=== PATIENT | female | born 1950 | race Caucasian/White ===

== ENCOUNTER → 2017-11-22 11:12 | Outpatient (CLI) | payer MEDICARE, OTHER, SELFPAY ==
[2017-11-22 12:38] LABS: Alanine Aminotransferase 33 IU/L (9-52); Albumin 4.6 g/dL (3.5-5.0); Albumin Globulin Ratio 1.5 (1.0-2.8); Alkaline Phosphatase 69 U/L (38-126); Aspartate Aminotransferase 34 IU/L (14-36); Bilirubin Total 0.8 mg/dL (0.2-1.3); Blood Urea Nitrogen 15 mg/dL (7-17); Calcium 9.9 mg/dL (8.4-10.2); Carbon Dioxide 32 mmol/L (22-32); Chloride 100 mmol/L (98-107); Cholesterol 155 mg/dL (140-199); Estimated Glomerular Filt Rate > 60.0 mL/min (>60); Globulin 3.1 g/dL (1.7-4.1); Glucose 137 mg/dL (80-110); HDL Cholesterol 78 mg/dL (40-60); HEMOLYSIS < 15 (0-50); LDL Cholesterol Calculated 58 mg/dL (<100); Potassium 4.9 mmol/L (3.4-5.1); Sodium 141 mmol/L (137-145); Total Protein 7.7 g/dL (6.3-8.2); Triglycerides 93 mg/dL (35-150)
[2017-11-22 13:13] LABS: Hemoglobin A1C% w Est Avg Glu 7.3 % (4.0-6.0)
[2017-11-22 14:00] LABS: Free T4, Direct Thyroxine 0.98 ng/dL (0.78-2.19); T4 Total Thyroxine 5.37 ug/dL (5.5-11.0)
[2017-11-22 14:14] LABS: Thyroid Stimulating Hormone 1.08 uIU/mL (0.47-4.68)
[2017-11-22 15:16] LABS: Microalbumi Creatinin Ratio Ur 27.2 ug/mg CR (<30); Microalbumin Urine Random < 0.6 mg/dL (0-1.6)
== END ==
PROVIDERS: PCP Internal Medicine Endocrinology, Diabetes & Metabolism; Visit Provider Internal Medicine Endocrinology, Diabetes & Metabolism
DX: E10.9 Type 1 diabetes mellitus without complications (principal)
CPT/HCPCS: 36415; 80053; 80061; 82043; 82570; 83036; 84436; 84439; 84443

== ENCOUNTER → 2018-04-04 16:29 | Outpatient (CLI) | payer MEDICARE, OTHER, SELFPAY ==
--- NOTE | 2018-04-04 16:38 | DI.RAD.S_ITS ---
PROCEDURE: XR THORACIC SPINE 3V INDICATIONS: COMPRESSION FRACTURE THORACIC TECHNIQUE: 5 views of the thoracic spine were acquired including flexion and extension lateral imaging neutral position lateral imaging. COMPARISON: None. FINDINGS: Bones: No fractures or dislocations. No suspicious bony lesions. 12 pairs of ribs are noted, and appear intact where visualized. The T9 vertebral body is slightly smaller than the level above and below, with approximately a 7-8% height reduction when compared to T8. This is within the range of normal variation but if it does represent a compression fracture the chronicity is uncertain. Soft tissues: No paravertebral stripe thickening. IMPRESSION: Mild degenerative disc disease is seen along the thoracic spine, no definite compression fracture is found. Note is made of a slight reduction in vertebral height at T9, but this is within the range of normal anatomic variation. It is conceivable this could represent a slight prior compression fracture, chronicity uncertain. Dictated by: Zacarias Witt M.D. on 04/05/2018 at 8:12 Approved by: Zacarias Witt M.D. on 04/05/2018 at 8:16
== END ==
PROVIDERS: PCP Internal Medicine Endocrinology, Diabetes & Metabolism; Visit Provider Chiropractor
DX: S22.000A Wedge compression fracture of unspecified thoracic vertebra, initial encounter for closed fracture (principal)
CPT/HCPCS: 72074

== ENCOUNTER → 2018-05-06 10:35 | Outpatient (CLI) | payer MEDICARE, OTHER, SELFPAY ==
[2018-05-06 13:05] LABS: Thyroid Stimulating Hormone 1.31 uIU/mL (0.47-4.68)
[2018-05-06 14:14] LABS: Creatinine Urine Random 72.1 mg/dL
[2018-05-06 15:00] LABS: Microalbumi Creatinin Ratio Ur 8.3 ug/mg CR (<30); Microalbumin Urine Random < 0.6 mg/dL (0-1.6)
[2018-05-06 18:05] LABS: Hemoglobin A1C% w Est Avg Glu 7.7 % (4.0-6.0)
[2018-05-06 19:03] LABS: Free T4, Direct Thyroxine 0.86 ng/dL (0.78-2.19)
== END ==
PROVIDERS: PCP Internal Medicine Endocrinology, Diabetes & Metabolism; Visit Provider Internal Medicine Endocrinology, Diabetes & Metabolism
DX: E11.40 Type 2 diabetes mellitus with diabetic neuropathy, unspecified (principal); E11.9 Type 2 diabetes mellitus without complications
CPT/HCPCS: 36415; 82043; 82570; 83036; 84439; 84443

== ENCOUNTER 2019-07-30 07:58 | Day surgery (SDC) | payer MEDICARE, OTHER, SELFPAY ==
--- NOTE | 2019-07-29 13:50 | PM.PREOP ---
Pre-operative Note Interval Note History & Physical reviewed/Exam performed by Physician: Yes Changes to H&P: No H&P completed within 30 days and has changed as indicated here:: Fasting glucose today is 130 and she controls it with an insulin pump
--- NOTE | 2019-07-30 07:26 | PM.OP.1 ---
Operative Date/Time/Diagnoses Date of procedure: 07/30/19 Time of procedure: 11:45 Procedure & Clinicians Procedure: Preoperative diagnoses: 1. Left advanced nuclear sclerotic and cortical cataract. 2. 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 3. Brittle diabetes with insulin pump. 4. Hypertension Postoperative diagnoses: 1. Advanced cataract removed by phacoemulsification with placement of posterior chamber intraocular lens. Procedure: Phacoemulsification with posterior chamber intraocular lens implant. Surgeon: Deepa Melendrez MD Complications: None Specimen: None Implant:ZCBOO+21.0 Blood loss: None Anesthesia: Retrobulbar with monitored standby Description of procedure: Patient presents with a complaint of decreased vision due to advanced cataract which is affecting activities of daily living. She has a poorly dilating pupil due to sit and pseudoexfoliation syndrome which makes her a glaucoma suspect and crosses fragility of the lens. She is at high risk for intra-ocular complications for which she is aware. She has had successful surgery for the similar condition in her other eye several years ago.. The patient wants surgery to improve vision. The pupil did dilate adequately after multiple attempts in a Maluygin ring was not used. The patient was taken to the operating room and given IV sedation. A retrobulbar block insert consisting of 6 cc of 2% xylocaine without epinephrine mixed half and half with 0.5% Marcaine with 1 cc of hyaluronidase added is placed between the medial and lateral 1/3 of the inferior orbital rim. The eye is manually massaged for 30 sec, prepped using Betadine solution, and draped in the usual sterile fashion. The patient was poorly tolerant of the lid speculum even after topical lidocaine gel and was unable to stay still for the procedure so she was converted to laryngeal mask airway. Temporal approach was made, a 1 mm side-port incision was made 90? from the proposed clear corneal incision position. Phenylephrine 1.5% mixed with 1% xylocaine 0.2 cc was placed into the anterior chamber. Viscoat followed by Brionna was then placed. A 2.6 mm clear incision with a 2.6 mm blade was placed. A 360 degree capsulorrhexis style capsulotomy was then performed with a cystitome needle on a Healon maximizing the pupil size.l. Hydrodelineation and hydrodissection were performed. The phacoemulsification unit is introduced, and sculpting used to groove the central lens. It is then removed in chopping mode. The zonules held intact during the procedure. Epi nucleus is removed with epinuclear mode and irrigation aspiration was used to remove the peripheral cortex. The posterior capsule is polished. The intraocular lens is selected, inspected, power confirmed, and placed in the posterior chamber. The wound was stromally hydrated and tested for leaks, there was none and it was left sutureless. Moxifloxacin 0.1 cc was placed into the anterior chamber. Kenalog 0.2 cc was placed in the superior subconjunctival space. A drop of antibiotic and was placed and the eye was patched and shielded. The patient was stable and returned to the recovery room in excellent condition. Dictated by: Deepa Melendrez MD Copy to: [facility] Same procedure as scheduled: Yes
[2019-07-30 10:25] VITALS: BP 155/65; PULSE 54; RESP 16; TEMP 36.1; O2SAT 98; BMI 31.4
[2019-07-30] MEDS: PROPARACAINE 0.5% OPHTH SOL 2 DROPS EYE-OP (10:46)
[2019-07-30] MEDS: CATARACT EYE COMPOUND (10 DROPS/SYRINGE) 3 DROPS EYE-OP (10:46)
--- NOTE | 2019-07-30 12:26 | SUR.OPER ---
Supine on eye stretcher, head on extension cradle secured with tape. Arms tucked at sides with blanket. Pillow under knees.
[2019-07-30] MEDS: ERYTHROMYCIN OPHTH 1 GM OINT 1 APPLIC EYE-LEFT (12:34)
[2019-07-30] MEDS: PHENYLEPHRINE/LIDOCAINE VIAL (OR) 0.2 ML EYE-OP (12:34)
[2019-07-30] MEDS: MOXIFLOXACIN INJ 5 MG/ML VIAL EYE-OP (12:36)
[2019-07-30] MEDS: TRIAMCINOLONE 50 MG/5 ML VIAL INJ (12:36)
[2019-07-30] MEDS: CHONDROIDTIN/SOD HYALURONATE 1.05 ML SYRINGE INTRAOCULA (12:37)
[2019-07-30] MEDS: LIDOCAINE 2% 4 ML, BUPIVACAINE 0.5% (PF) 4 ML, HYALURONIDASE 150 UNIT INJ (12:37)
[2019-07-30] MEDS: HYALURONATE SODIUM 10 MG/ML SYRINGE INJ (12:38)
[2019-07-30] MEDS: BALANCED SALT IRRIG SOLN NO.2 500 ML, EPINEPHrine 1 MG IRR (12:39)
[2019-07-30 13:06] VITALS: BP 121/48; O2SAT 95
[2019-07-30 13:11] VITALS: BP 114/50; O2SAT 95
[2019-07-30 13:21] VITALS: BP 135/60; TEMP 36.1
--- NOTE | 2019-07-30 13:22 | SUR.PHASEI ---
Patient was a left eye cataract. Patient required increased sedation 2 to being able to feel everything. Placed on propofol gtt. Per Dr Mosqueda ok not to place on EKG monitoring while in PACU. Patient A/O. Tolerating po. Denies pain and nausea. BG 8. Gave OJ per patient request.
[2019-07-30 13:29] VITALS: BP 139/72; PULSE 77; RESP 18; TEMP 35.9; O2SAT 98
== END 2019-07-30 13:47 | disposition home or self-care (01) ==
LOC: OR 07:59
PROVIDERS: PCP Internal Medicine Endocrinology, Diabetes & Metabolism; Referring Provider Ophthalmology; Visit Provider Ophthalmology
PROC: (CPT 66984; principal; 2019-07-30 11:45)
DX: H25.812 Combined forms of age-related cataract, left eye (principal); H26.8 Other specified cataract
CPT/HCPCS: 66984; J0171; J2405; J3010; J3301; J3470

== ENCOUNTER → 2021-07-20 13:09 | Outpatient (CLI) | payer MEDICARE, OTHER, SELFPAY ==
[2021-07-20 19:11] LABS: Add Manual Diff / Slide Review NO; Basophils Absolute Auto 100 /uL (0-100); Basophils Percent Auto 0.7 % (0-2); Eosinophils Absolute Auto 100 /uL (0-450); Eosinophils Percent Auto 1.5 % (2-4); Hematocrit 38.3 % (36-46); Lymphocytes Absolute Auto 2100 /uL (1100-4500); Lymphocytes Percent Auto 29.1 % (25-40); Mean Corpuscular HGB Conc 34.1 % (30-36); Mean Corpuscular Hemoglobin 31.5 PG (26-34); Mean Corpuscular Volume 92.6 fL (80-100); Monocytes Absolute Auto 600 /uL (0-900); Monocytes Percent Auto 7.6 % (3-14); Neutrophils Absolute Auto 4500 /uL (1500-7000); Neutrophils Percent Auto 61.1 % (50-75); Platelet Count 297 X10^3/uL (150-400); Red Blood Cell Count 4.13 X10^6/uL (4.0-5.2); Red Cell Distribution Width 14.1 % (11.6-14.8); White Blood Cell Count 7.4 X10^3/uL (4.5-11.0)
[2021-07-20 19:12] LABS: HEMOLYSIS < 15 (0-50); Iron 77 ug/dL (37-170)
[2021-07-20 19:15] LABS: Hemoglobin A1C% w Est Avg Glu 8.9 % (4.0-6.0)
[2021-07-20 19:28] LABS: Percent Iron Saturation 27 % (15-50); Total Iron Binding Capacity 289 ug/dL (265-497); Transferrin 231 mg/dL (206-381)
[2021-07-20 19:46] LABS: Thyroid Stimulating Hormone 0.354 uIU/mL (0.47-4.68)
[2021-07-20 19:48] LABS: Ferritin 120 ng/mL (11-264)
== END ==
PROVIDERS: PCP Internal Medicine Endocrinology, Diabetes & Metabolism; Visit Provider Internal Medicine Endocrinology, Diabetes & Metabolism
DX: E11.9 Type 2 diabetes mellitus without complications (principal); M81.0 Age-related osteoporosis without current pathological fracture
CPT/HCPCS: 82728; 83036; 83540; 83550; 84443; 85025

== ENCOUNTER → 2022-01-05 13:32 | Outpatient (CLI) | payer MEDICARE, OTHER, SELFPAY ==
[2022-01-06 03:36] LABS: Hemoglobin A1C% w Est Avg Glu 8.4 % (4.0-6.0)
== END ==
PROVIDERS: PCP Internal Medicine Endocrinology, Diabetes & Metabolism; Visit Provider Internal Medicine Endocrinology, Diabetes & Metabolism
DX: E10.319 Type 1 diabetes mellitus with unspecified diabetic retinopathy without macular edema (principal)
CPT/HCPCS: 83036

== ENCOUNTER → 2023-01-24 12:05 | Outpatient (CLI) | payer MEDICARE, OTHER, SELFPAY ==
[2023-01-24 19:50] LABS: Alanine Aminotransferase 37 IU/L (<35); Albumin Globulin Ratio 1.5 (1.0-2.8); Alkaline Phosphatase 94 U/L (38-126); Aspartate Aminotransferase 34 IU/L (14-36); BUN Creatinine Ratio 29.5 (6-22); Bilirubin Total 0.5 mg/dL (0.2-1.3); Blood Urea Nitrogen 31 mg/dL (7-17); Calcium 9.8 mg/dL (8.4-10.2); Carbon Dioxide 30 mmol/L (22-32); Chloride 99 mmol/L (98-107); Cholesterol 190 mg/dL (140-199); Estimated Glomerular Filt Rate 56 mL/min (>60); Globulin 2.6 g/dL (1.7-4.1); Glucose 102 mg/dL (80-110); HDL Cholesterol 81 mg/dL (40-60); HEMOLYSIS < 15 (0-50); LDL Cholesterol Calculated 70 mg/dL (<100); Potassium 4.1 mmol/L (3.4-5.1); Sodium 137 mmol/L (137-145); Total Protein 6.6 g/dL (6.3-8.2); Triglycerides 195 mg/dL (35-150)
[2023-01-24 20:19] LABS: Creatinine Urine Random 128.3 mg/dL
[2023-01-24 20:22] LABS: Thyroid Stimulating Hormone 0.042 uIU/mL (0.47-4.68)
[2023-01-24 20:23] LABS: Microalbumi Creatinin Ratio Ur 6.2 ug/mg CR (<30); Microalbumin Urine Random 0.8 mg/dL (0-1.6)
[2023-01-25 21:05] LABS: x Labcorp Estim. Avg Glu (eAG) 180 mg/dL (.); x Labcorp Hemoglobin A1c 7.9 % (4.8-5.6)
== END ==
PROVIDERS: PCP Internal Medicine Endocrinology, Diabetes & Metabolism; Visit Provider Internal Medicine Endocrinology, Diabetes & Metabolism
DX: E03.9 Hypothyroidism, unspecified (principal); E10.319 Type 1 diabetes mellitus with unspecified diabetic retinopathy without macular edema
CPT/HCPCS: 80053; 80061; 82043; 82570; 83036; 84443